=== PATIENT | female | born 1955 | race Two or more races ===

== ENCOUNTER 2020-07-06 09:18 | Outpatient (REF) | payer MEDICARE, MEDICAID, SELFPAY | END 2020-07-06 09:19 | disposition home or self-care (01) | LOC: HO.LAB 09:18 | PROVIDERS: PCP Internal Medicine; Visit Provider Internal Medicine | DX: Z20.822 Contact with and (suspected) exposure to COVID-19 (principal) | CPT/HCPCS: 36415; C9803; U0003 ==